=== PATIENT | female | born 2000 | race Caucasian/White ===

== ENCOUNTER 2020-12-03 03:09 | Emergency (ER) | payer OTHER ==
[2020-12-03] MEDS ORDERED: ERYTHROMYCIN O3.5 GM OU (04:01)
== END 2020-12-03 04:15 | disposition home or self-care (01) ==
LOC: ER1 03:09
DX: T78.40XA Allergy, unspecified, initial encounter (principal); F17.290 Nicotine dependence, other tobacco product, uncomplicated
CPT/HCPCS: 96372; 99282; J1100